=== PATIENT | female | born 1960 | race Caucasian/White ===

== ENCOUNTER 2019-08-20 03:35 | Inpatient (IN) | payer BC ==
[2019-08-20] VITALS (9 sets, daily range): BP systolic 110–144; BP diastolic 49–91
[~2019-08-20] VITALS: Ht 157.5 cm; Wt 75.3 kg
[2019-08-20] MEDS ORDERED: ONDANSETRON HCL 4MG/2ML INJ IV STA (03:47)
[2019-08-20] MEDS ORDERED: LABETALOL 5MG/ML SYR 20 MG/4 ML SYRINGE IV ONE (04:00)
[2019-08-20] MEDS ORDERED: NITROGLYCERIN OINT 1GM/INCH UDPKT TD ONE (04:00)
[2019-08-20] MEDS ORDERED: SEVE800T8 PO (04:05)
[2019-08-20] MEDS ORDERED: CARV6.2548 PO (04:05)
[2019-08-20] MEDS ORDERED: FAMO20TA8 PO (04:05)
[2019-08-20] MEDS ORDERED: ASPI-986 PO (04:05)
[2019-08-20] MEDS ORDERED: MIDO5TAB PO (04:05)
[2019-08-20 04:16] LABS: BASOPHILS % 1.4 % (0.0-2.0); EOSINOPHILS % 6.6 % (0.0-5.0); HEMATOCRIT. 44.6 % (36.0-48.0); HEMOGLOBIN. 14.8 g/dL (12.0-16.0); LYMPHOCYTES % 29.8 % (20.0-50.0); MEAN CORPUSCULAR HEMOGLOBIN 31.5 pg (28.0-32.0); MEAN CORPUSCULAR VOLUME 95.1 fL (81.0-99.0); MEAN PLATELET VOLUME 8.9 fl (7.4-10.4); MONOCYTES % 5.7 % (2.0-8.0); NEUTROPHILS % 56.5 % (40.0-76.0); PLATELET 271 x1000/uL (130-400); RED BLOOD CELL COUNT 4.69 mill/uL (4.2-5.4); RED CELL DISTRIBUTION WIDTH 14.6 % (11.6-14.6)
[2019-08-20 04:59] LABS: CHLORIDE 106 mEq/L (98-107)
[2019-08-20 05:11] LABS: BG BASE EXCESS -8.8 mmol/L (-2.0-2.0); BG BILEVEL POS AIRWAY PRESSURE 18/5; BG DEOXYHEMOGLOBIN 0.5 % (0.0-5.0); BG FRACTION INSPIRED OXYGEN 100; BG HCO3 ACT 17.2 mmol/L (22.0-26.0); BG METHEMOGLOBIN 0.3 % (0.0-1.5); BG OXYGEN SATURATION 99.5 % (92.0-98.5); BG OXYHEMOGLOBIN 98.2 % (94.0-97.0); BG PCO2 37.8 mmHg (35.0-45.0); BG PH 7.277 (7.350-7.450); BG PO2 280.7 mmHg (75.0-100.0); BG SAMPLE SITE RIGHT RADIAL; BG TOTAL HEMOGLOBIN 14.4 g/dL (12.0-18.0); BG VENT MODE MASK - BIPAP
[2019-08-20] MEDS ORDERED: SODIUM POLYSTYRENE SULFONATE 15 G/60 ML BOT PO ONE (05:15)
[2019-08-20] MEDS ORDERED: ALBUTEROL (0.083%) 2.5MG/3ML NEB HHN ONE (05:15)
[2019-08-20] MEDS ORDERED: IPRATROPIUM/ALBUTEROL 0.5-3(2.5)MG/3ML NEB NEB PRN (07:00)
[2019-08-20] MEDS ORDERED: DOCUSATE SODIUM 100MG CAPSULE PO PRN (07:00)
[2019-08-20] MEDS ORDERED: MAGNESIUM/ALUMINUM HYDROXIDE/SIMETHICONE 30ML UDC PO PRN (07:00)
[2019-08-20] MEDS ORDERED: LORAZEPAM 0.5MG TABLET PO PRN (07:00)
[2019-08-20] MEDS ORDERED: CLONIDINE 0.1MG TABLET PO PRN (07:00)
[2019-08-20] MEDS ORDERED: ENOXAPARIN 40MG/0.4ML SYR SUBCUT SCH (07:00)
[2019-08-20] MEDS ORDERED: NITROGLYCERIN 0.4MG TABLET SL SL PRN (07:00)
[2019-08-20] MEDS ORDERED: GUAIFENESIN 200MG/10ML SUGAR FREE UDC PO PRN (07:00)
[2019-08-20] MEDS ORDERED: ONDANSETRON HCL 4MG/2ML INJ IV PRN (07:00)
[2019-08-20] MEDS ORDERED: ACETAMINOPHEN 325MG TABLET PO PRN (07:00)
[2019-08-20] MEDS ORDERED: TRAMADOL 50MG TABLET PO PRN (07:00)
[2019-08-20 08:04] LABS: PHOSPHORUS 8.3 mg/dL (2.5-4.9)
[2019-08-20] MEDS ORDERED: SODIUM POLYSTYRENE SULFONATE 15 G/60 ML BOT PO SCH (09:00)
[2019-08-20] MEDS: CARVEDILOL 3.125 MG TABLET PO SCH ×2 (09:00→20:57)
[2019-08-20] MEDS: BUDESONIDE 0.5MG/2ML NEB HHN SCH (09:21)
[2019-08-20] MEDS: SEVELAMER CARBONATE 800 MG TABLET PO SCH ×3 (09:41→18:03)
[2019-08-20] MEDS: ASPIRIN 325MG EC TABLET PO SCH (09:41)
[2019-08-20] MEDS: FOLIC ACID/VITAMIN B COMP W-C TABLET PO SCH (09:41)
[2019-08-20] MEDS: FAMOTIDINE 20MG TABLET PO SCH (09:41)
[2019-08-20] MEDS: ENOXAPARIN 30MG/0.3ML SYR SUBCUT SCH (09:42)
[2019-08-20] MEDS ORDERED: DEXTROSE 50% WATER 50ML SYRINGE IV PRN ×2 (10:15)
[2019-08-20] MEDS ORDERED: BLOOD SUGAR DIAGNOSTIC STRIP TEST SCH (12:30)
[2019-08-20] MEDS: BLOOD SUGAR DIAGNOSTIC STRIP TEST SCH ×3 (12:39→20:57)
[2019-08-20] MEDS: MIDODRINE HCL 5MG TABLET PO SCH ×2 (12:55→17:00)
[2019-08-20] MEDS: INSULIN LISPRO 100 UNITS/ML SUBCUT SCH ×3 (12:58→21:06)
[2019-08-20] MEDS ORDERED: INSULIN LISPRO 100 UNITS/ML SUBCUT SCH (13:00)
[2019-08-20] MEDS: CALCIUM ACETATE 667MG CAPSULE PO SCH ×2 (13:01→18:03)
[2019-08-20 16:07] LABS: CREATINE KINASE MB FRACTION 2.9 ng/mL (0.5-3.6)
[2019-08-20] MEDS: IPRATROPIUM/ALBUTEROL 0.5-3(2.5)MG/3ML NEB HHN SCH (20:13)
[2019-08-20] MEDS ORDERED: ZOLPIDEM TARTRATE 5MG TABLET PO PRN (21:00)
[2019-08-20 23:57] LABS: CREATINE KINASE MB FRACTION 2.2 ng/mL (0.5-3.6)
[2019-08-21] VITALS (12 sets, daily range): BP systolic 111–143; BP diastolic 54–83
[2019-08-21] MEDS: IPRATROPIUM/ALBUTEROL 0.5-3(2.5)MG/3ML NEB HHN SCH ×4 (00:55→20:13)
[2019-08-21 06:54] LABS: EOSINOPHILS % 5.8 % (0.0-5.0); HEMOGLOBIN. 13.8 g/dL (12.0-16.0); LYMPHOCYTES % 18.6 % (20.0-50.0); MEAN CORPUSCULAR HEMOGLOBIN 31.3 pg (28.0-32.0); MEAN CORPUSCULAR VOLUME 95.5 fL (81.0-99.0); MEAN PLATELET VOLUME 8.6 fl (7.4-10.4); MONOCYTES % 8.9 % (2.0-8.0); NEUTROPHILS % 65.7 % (40.0-76.0); PLATELET 228 x1000/uL (130-400); RED CELL DISTRIBUTION WIDTH 14.5 % (11.6-14.6)
[2019-08-21] MEDS: BLOOD SUGAR DIAGNOSTIC STRIP TEST SCH ×4 (07:30→20:39)
[2019-08-21 08:00] LABS: PHOSPHORUS 6.9 mg/dL (2.5-4.9)
[2019-08-21] MEDS: INSULIN LISPRO 100 UNITS/ML SUBCUT SCH ×4 (08:00→20:50)
[2019-08-21] MEDS: FAMOTIDINE 20MG TABLET PO SCH (09:22)
[2019-08-21] MEDS: ASPIRIN 325MG EC TABLET PO SCH (09:22)
[2019-08-21] MEDS: CALCIUM ACETATE 667MG CAPSULE PO SCH ×2 (09:22→17:48)
[2019-08-21] MEDS: SEVELAMER CARBONATE 800 MG TABLET PO SCH ×3 (09:22→17:47)
[2019-08-21] MEDS: FOLIC ACID/VITAMIN B COMP W-C TABLET PO SCH (09:23)
[2019-08-21] MEDS: CARVEDILOL 3.125 MG TABLET PO SCH ×2 (09:23→20:39)
[2019-08-21] MEDS: ENOXAPARIN 30MG/0.3ML SYR SUBCUT SCH (09:25)
[2019-08-21] MEDS: MIDODRINE HCL 5MG TABLET PO SCH ×3 (10:16→17:47)
[2019-08-21] MEDS: METHYLPREDNISOLONE SOD SUCC 40 MG/ML VIAL IV SCH (13:16)
[2019-08-21] MEDS: LORATADINE 10MG TABLET PO SCH (13:16)
[2019-08-21] MEDS: BUDESONIDE 0.5MG/2ML NEB HHN SCH (20:13)
[2019-08-22] VITALS (11 sets, daily range): BP systolic 115–163; BP diastolic 61–91
[2019-08-22] MEDS: METHYLPREDNISOLONE SOD SUCC 40 MG/ML VIAL IV SCH ×3 (01:19→23:57)
[2019-08-22] MEDS: IPRATROPIUM/ALBUTEROL 0.5-3(2.5)MG/3ML NEB HHN SCH ×4 (01:49→20:33)
[2019-08-22 06:02] LABS: BASOPHILS % 0.6 % (0.0-2.0); EOSINOPHILS % 0.1 % (0.0-5.0); HEMATOCRIT. 42.8 % (36.0-48.0); HEMOGLOBIN. 14.1 g/dL (12.0-16.0); LYMPHOCYTES % 9.6 % (20.0-50.0); MEAN CORPUSCULAR HEMOGLOBIN 31.3 pg (28.0-32.0); MEAN CORPUSCULAR VOLUME 94.8 fL (81.0-99.0); MEAN PLATELET VOLUME 8.7 fl (7.4-10.4); MONOCYTES % 0.4 % (2.0-8.0); NEUTROPHILS % 89.3 % (40.0-76.0); PLATELET 240 x1000/uL (130-400); RED BLOOD CELL COUNT 4.51 mill/uL (4.2-5.4); RED CELL DISTRIBUTION WIDTH 14.4 % (11.6-14.6)
[2019-08-22 06:18] LABS: PHOSPHORUS 7.2 mg/dL (2.5-4.9)
[2019-08-22] MEDS: BLOOD SUGAR DIAGNOSTIC STRIP TEST SCH ×4 (07:30→21:11)
[2019-08-22] MEDS: BUDESONIDE 0.5MG/2ML NEB HHN SCH ×2 (07:45→20:32)
[2019-08-22] MEDS: CALCIUM ACETATE 667MG CAPSULE PO SCH ×3 (08:25→18:15)
[2019-08-22] MEDS: SEVELAMER CARBONATE 800 MG TABLET PO SCH ×3 (08:25→18:15)
[2019-08-22] MEDS: ASPIRIN 325MG EC TABLET PO SCH (08:25)
[2019-08-22] MEDS: FOLIC ACID/VITAMIN B COMP W-C TABLET PO SCH (08:25)
[2019-08-22] MEDS: LORATADINE 10MG TABLET PO SCH (08:25)
[2019-08-22] MEDS: FAMOTIDINE 20MG TABLET PO SCH (08:25)
[2019-08-22] MEDS: MIDODRINE HCL 5MG TABLET PO SCH ×3 (08:26→17:00)
[2019-08-22] MEDS: CARVEDILOL 3.125 MG TABLET PO SCH ×2 (08:26→21:13)
[2019-08-22] MEDS: INSULIN LISPRO 100 UNITS/ML SUBCUT SCH ×4 (08:27→21:13)
[2019-08-22] MEDS: ENOXAPARIN 30MG/0.3ML SYR SUBCUT SCH (08:32)
[2019-08-22 13:53] LABS: BG BASE EXCESS -2.8 mmol/L (-2.0-2.0); BG CARBOXYHEMOGLOBIN 1.1 % (0.5-1.5); BG DEOXYHEMOGLOBIN 7.2 % (0.0-5.0); BG FRACTION INSPIRED OXYGEN 21; BG HCO3 ACT 22.4 mmol/L (22.0-26.0); BG METHEMOGLOBIN 0.1 % (0.0-1.5); BG OXYGEN SATURATION 92.7 % (92.0-98.5); BG OXYHEMOGLOBIN 91.6 % (94.0-97.0); BG PCO2 40.2 mmHg (35.0-45.0); BG PH 7.363 (7.350-7.450); BG PO2 65.7 mmHg (75.0-100.0); BG SAMPLE SITE RIGHT RADIAL; BG TOTAL HEMOGLOBIN 14.8 g/dL (12.0-18.0); BG VENT MODE ROOM AIR
[2019-08-22] MEDS ORDERED: HEPARIN SODIUM 1,000 UNIT/1ML VIAL IV NR (17:15)
[2019-08-23] VITALS (8 sets, daily range): BP systolic 135–149; BP diastolic 62–94
[2019-08-23] MEDS: IPRATROPIUM/ALBUTEROL 0.5-3(2.5)MG/3ML NEB HHN SCH ×3 (04:44→15:38)
[2019-08-23 06:36] LABS: HEMATOCRIT. 43.4 % (36.0-48.0); HEMOGLOBIN. 14.3 g/dL (12.0-16.0); MEAN CORPUSCULAR HEMOGLOBIN 31.3 pg (28.0-32.0); MEAN CORPUSCULAR VOLUME 95.2 fL (81.0-99.0); MEAN PLATELET VOLUME 8.7 fl (7.4-10.4); PLATELET 246 x1000/uL (130-400); RED BLOOD CELL COUNT 4.56 mill/uL (4.2-5.4); RED CELL DISTRIBUTION WIDTH 14.6 % (11.6-14.6)
[2019-08-23] MEDS: BLOOD SUGAR DIAGNOSTIC STRIP TEST SCH ×3 (07:55→17:19)
[2019-08-23] MEDS: SEVELAMER CARBONATE 800 MG TABLET PO SCH ×2 (08:06→12:38)
[2019-08-23] MEDS: CARVEDILOL 3.125 MG TABLET PO SCH (08:06)
[2019-08-23] MEDS: LORATADINE 10MG TABLET PO SCH (08:06)
[2019-08-23] MEDS: ASPIRIN 325MG EC TABLET PO SCH (08:06)
[2019-08-23] MEDS: FAMOTIDINE 20MG TABLET PO SCH (08:07)
[2019-08-23] MEDS: CALCIUM ACETATE 667MG CAPSULE PO SCH ×2 (08:07→12:38)
[2019-08-23] MEDS: ENOXAPARIN 30MG/0.3ML SYR SUBCUT SCH (08:07)
[2019-08-23] MEDS: FOLIC ACID/VITAMIN B COMP W-C TABLET PO SCH (08:07)
[2019-08-23] MEDS: MIDODRINE HCL 5MG TABLET PO SCH ×3 (08:08→17:00)
[2019-08-23] MEDS: INSULIN LISPRO 100 UNITS/ML SUBCUT SCH ×2 (08:08→12:39)
[2019-08-23] MEDS: BUDESONIDE 0.5MG/2ML NEB HHN SCH (08:31)
[2019-08-23 10:42] LABS: PLATELET ESTIMATE NORMAL
[2019-08-23] MEDS: METHYLPREDNISOLONE SOD SUCC 40 MG/ML VIAL IV SCH (12:38)
[2019-08-23] MEDS ORDERED: ALBU90AE INH (13:23)
[2019-08-23] MEDS ORDERED: IPRA3AMP9 HHN (17:08)
== END 2019-08-23 19:00 | disposition home or self-care (01) | DRG 871 ==
LOC: ER 03:35 → 5EST 05:40 → EDBEDREQTM 05:50 → EDBEDREQSVC 05:50 → EDBEDREQ 05:50 → SUPCPDRO 06:57 → ENRESERV 07:40
PROVIDERS: ADMIT Internal Medicine; ATTEND Internal Medicine
PROC: 5A09357 Assistance with Respiratory Ventilation, Less than 24 Consecutive Hours, Continuous Positive Airway Pressure (ICD-10-PCS; principal; 2019-08-20)
DX: A41.9 Sepsis, unspecified organism (principal); I50.43 Acute on chronic combined systolic (congestive) and diastolic (congestive) heart failure; J96.01 Acute respiratory failure with hypoxia; N18.6 End stage renal disease; E43 Unspecified severe protein-calorie malnutrition; J18.9 Pneumonia, unspecified organism; I42.9 Cardiomyopathy, unspecified; D62 Acute posthemorrhagic anemia; I13.2 Hypertensive heart and chronic kidney disease with heart failure and with stage 5 chronic kidney disease, or end stage renal disease; K92.2 Gastrointestinal hemorrhage, unspecified; N17.9 Acute kidney failure, unspecified; N25.81 Secondary hyperparathyroidism of renal origin; E87.5 Hyperkalemia; I95.1 Orthostatic hypotension; D72.1 Eosinophilia; E11.22 Type 2 diabetes mellitus with diabetic chronic kidney disease; E66.9 Obesity, unspecified; E83.39 Other disorders of phosphorus metabolism; F14.10 Cocaine abuse, uncomplicated; R74.0 Nonspecific elevation of levels of transaminase and lactic acid dehydrogenase [LDH]; I25.10 Atherosclerotic heart disease of native coronary artery without angina pectoris; Z79.899 Other long term (current) drug therapy; Z82.49 Family history of ischemic heart disease and other diseases of the circulatory system; Z87.891 Personal history of nicotine dependence; Z95.1 Presence of aortocoronary bypass graft; Z95.810 Presence of automatic (implantable) cardiac defibrillator; Z99.2 Dependence on renal dialysis; Z88.8 Allergy status to other drugs, medicaments and biological substances; Z79.82 Long term (current) use of aspirin
CPT/HCPCS: 36415; 36600; 71045; 80048; 80061; 82375; 82550; 82553; 82805; 82962; 83036; 83735; 84100; 84484; 93005; 93306; 93970; 94618; 94640; 94660; 96374; 96375; 97116; 97162; 99291; J1644; J1650; J1815; J2405; J2920; J3490; J7611; J7620; J7626

== ENCOUNTER 2024-10-04 00:24 | Inpatient (IN) | payer BC ==
[~2024-10-04] VITALS: Ht 162.6 cm; Wt 76.2 kg
[2024-10-04] VITALS (16 sets, daily range): BP systolic 146–166; BP diastolic 77–89; PULSE 71–85; RESP 14–28; TEMP 36.50292–36.974; O2SAT 96–100
[~2024-10-04 00:24] MED LIST: ALBU90AE INH; ASPI-986 PO; CARV6.2548 PO; FAMO20TA8 PO; IPRA3AMP9 HHN; MIDO5TAB4 PO; SEVE800T8 PO
[2024-10-04] MEDS: ALBUTEROL (0.083%) 2.5MG/3ML NEB HHN STA (00:48)
[2024-10-04 00:52] LABS: EOSINOPHILS % 4.9 % (0.0-5.0); HEMATOCRIT. 47.4 % (36.0-48.0); HEMOGLOBIN. 15.2 g/dL (12.0-16.0); LYMPHOCYTES % 32.3 % (20.0-50.0); MEAN CORPUSCULAR HEMOGLOBIN 29.3 pg (28.0-32.0); MEAN CORPUSCULAR HGB CONC 32.1 g/dL (31.0-37.0); MEAN CORPUSCULAR VOLUME 91.2 fL (81.0-99.0); MEAN PLATELET VOLUME 9.2 fl (7.4-10.4); MONOCYTES % 6.9 % (2.0-8.0); NEUTROPHILS % 54.9 % (40.0-76.0); PLATELET 254 x1000/uL (130-400); RED CELL DISTRIBUTION WIDTH 15.9 % (11.6-14.6); WHITE BLOOD COUNT 15.7 x1000/uL (4.5-11.0)
[2024-10-04 00:59] LABS: TROPONIN I HIGH SENSITIVITY 16 ng/L (3.0-34)
[2024-10-04 01:09] LABS: BG BASE EXCESS -9.3 mmol/L (-2.0-3.0); BG CARBOXYHEMOGLOBIN 0.8 % (0.5-1.5); BG DEOXYHEMOGLOBIN 0.3 % (0.0-5.0); BG FRACTION INSPIRED OXYGEN 100; BG HCO3 ACT 16.7 mmol/L (21.0-28.0); BG METHEMOGLOBIN 0.3 % (0.5-1.5); BG OXYGEN SATURATION 99.7 % (94.0-98.0); BG OXYHEMOGLOBIN 98.6 % (94.0-98.0); BG PCO2 36.5 mmHg (32.0-45.0); BG PH 7.277 (7.350-7.450); BG PO2 359.8 mmHg (83.0-108.0); BG SAMPLE SITE LEFT RADIAL; BG TOTAL HEMOGLOBIN 15.1 g/dL (12.0-16.0); BG VENT MODE MASK - BIPAP
[2024-10-04] MEDS: ASPIRIN 81MG TABLET PO ONE (01:30)
[2024-10-04 01:45] LABS: CHLORIDE 101 mEq/L (98-107); POTASSIUM 4.9 mEq/L (3.5-5.1); SODIUM 138 mEq/L (136-145)
[2024-10-04 01:46] LABS: CALCIUM 9.9 mg/dL (8.7-10.4); CARBON DIOXIDE 17 mEq/L (21-32)
[2024-10-04 01:51] LABS: GLUCOSE 255 mg/dL (70-105); UREA NITROGEN BLOOD 49 mg/dL (9-23)
[2024-10-04 02:02] LABS: CREATININE 9.7 mg/dL (0.6-1.0)
[2024-10-04 04:46] LABS: INR 0.9; PARTIAL THROMBOPLASTIN TIME 26.7 sec (23.4-31.0); PROTHROMBIN TIME 10.5 sec (9.6-11.0)
[2024-10-04] MEDS ORDERED: DOCUSATE SODIUM 100MG CAPSULE PO PRN (10:30)
[2024-10-04] MEDS ORDERED: ACETAMINOPHEN 325MG TABLET PO PRN ×2 (10:30)
[2024-10-04] MEDS ORDERED: IPRATROPIUM/ALBUTEROL 0.5-3(2.5)MG/3ML NEB HHN PRN (10:30)
[2024-10-04] MEDS ORDERED: DEXTROSE 50% WATER 50ML SYRINGE IV PRN (10:30)
[2024-10-04] MEDS ORDERED: CLONIDINE 0.1MG TABLET PO PRN (10:30)
[2024-10-04] MEDS ORDERED: ONDANSETRON HCL 4MG/2ML INJ IV PRN (10:30)
[2024-10-04] MEDS: FAMOTIDINE 20MG TABLET PO SCH (11:00)
[2024-10-04 11:47] LABS: HEPATITIS B SURFACE ANTIGEN NEGATIVE (Negative)
[2024-10-04 12:09] LABS: HEPATITIS A AB IGM NEGATIVE (Negative); HEPATITIS B CORE AB IGM NEGATIVE (Negative); HEPATITIS C AB NON REACTIVE (Neg) (Negative)
[2024-10-04] MEDS: SEVELAMER CARBONATE 800 MG TABLET PO SCH (13:00)
[2024-10-04] MEDS: BLOOD SUGAR DIAGNOSTIC STRIP TEST SCH (13:36)
[2024-10-04] MEDS: INSULIN LISPRO 100 UNITS/ML SUBCUT SCH (14:17)
[2024-10-04] MEDS: CARVEDILOL 3.125 MG TABLET PO NR (14:44)
[2024-10-04] MEDS: ATORVASTATIN CALCIUM 10MG TABLET PO SCH (21:38)
[2024-10-04] MEDS: SACUBITRIL/VALSARTAN 24MG/26MG TABLET PO SCH (22:35)
[2024-10-05] VITALS (12 sets, daily range): BP systolic 140–159; BP diastolic 70–109; PULSE 74–85; RESP 15–31; TEMP 36.33624–37.33632; O2SAT 89–96
[2024-10-05 06:09] LABS: BASOPHILS % 1.6 % (0.0-2.0); EOSINOPHILS % 5.1 % (0.0-5.0); HEMATOCRIT. 42.4 % (36.0-48.0); HEMOGLOBIN. 13.8 g/dL (12.0-16.0); LYMPHOCYTES % 17.6 % (20.0-50.0); MEAN CORPUSCULAR HEMOGLOBIN 29.5 pg (28.0-32.0); MEAN CORPUSCULAR HGB CONC 32.7 g/dL (31.0-37.0); MEAN CORPUSCULAR VOLUME 90.3 fL (81.0-99.0); MEAN PLATELET VOLUME 9.2 fl (7.4-10.4); MONOCYTES % 10.4 % (2.0-8.0); NEUTROPHILS % 65.3 % (40.0-76.0); PLATELET 186 x1000/uL (130-400); RED BLOOD CELL COUNT 4.69 mill/uL (4.2-5.4); RED CELL DISTRIBUTION WIDTH 15.3 % (11.6-14.6); WHITE BLOOD COUNT 7.4 x1000/uL (4.5-11.0)
[2024-10-05 06:13] LABS: CHLORIDE 101 mEq/L (98-107); POTASSIUM 5.2 mEq/L (3.5-5.1); SODIUM 137 mEq/L (136-145)
[2024-10-05 06:14] LABS: CALCIUM 10.1 mg/dL (8.7-10.4); CARBON DIOXIDE 22 mEq/L (21-32)
[2024-10-05 06:19] LABS: GLUCOSE 136 mg/dL (70-105); UREA NITROGEN BLOOD 52 mg/dL (9-23)
[2024-10-05 06:20] LABS: ALANINE AMINOTRANSFERASE 9 IU/L (10-49); ALBUMIN 4.1 g/dL (3.2-4.8); ASPARTATE AMINOTRANSFERASE 16 IU/L (<34)
[2024-10-05 06:21] LABS: BILIRUBIN TOTAL 0.3 mg/dL (0.1-1.0); PROTEIN TOTAL 7.3 g/dL (6.0-8.3)
[2024-10-05 06:39] LABS: CREATININE 10.4 mg/dL (0.6-1.0)
[2024-10-05] MEDS: MIDODRINE HCL 5MG TABLET PO SCH ×2 (09:00→21:18)
[2024-10-05] MEDS ORDERED: ASPIRIN 325MG EC TABLET PO SCH (09:00)
[2024-10-05] MEDS: FOLIC ACID/VITAMIN B COMP W-C TABLET PO SCH (10:47)
[2024-10-05] MEDS: ASPIRIN 81MG EC TABLET PO SCH (10:50)
[2024-10-05] MEDS: SODIUM ZIRCONIUM CYCLOSILICATE 10GM/PACKET PO NR (11:01)
[2024-10-06] VITALS (7 sets, daily range): BP systolic 100–156; BP diastolic 49–91; PULSE 72–85; RESP 16–29; TEMP 36.114–37.00296; O2SAT 89–96
[2024-10-06 10:17] LABS: CALCIUM 10.1 mg/dL (8.7-10.4)
[2024-10-06 10:23] LABS: BASOPHILS % 1.3 % (0.0-2.0); EOSINOPHILS % 6.5 % (0.0-5.0); HEMATOCRIT. 45.6 % (36.0-48.0); HEMOGLOBIN. 14.8 g/dL (12.0-16.0); LYMPHOCYTES % 17.7 % (20.0-50.0); MEAN CORPUSCULAR HEMOGLOBIN 29.2 pg (28.0-32.0); MEAN CORPUSCULAR HGB CONC 32.5 g/dL (31.0-37.0); MEAN CORPUSCULAR VOLUME 89.7 fL (81.0-99.0); MEAN PLATELET VOLUME 9.1 fl (7.4-10.4); MONOCYTES % 8.1 % (2.0-8.0); NEUTROPHILS % 66.4 % (40.0-76.0); PLATELET 212 x1000/uL (130-400); RED BLOOD CELL COUNT 5.08 mill/uL (4.2-5.4); RED CELL DISTRIBUTION WIDTH 15.1 % (11.6-14.6); WHITE BLOOD COUNT 7.5 x1000/uL (4.5-11.0)
[2024-10-06 10:24] LABS: CREATININE 12.2 mg/dL (0.6-1.0)
[2024-10-06] MEDS ORDERED: SACUBITRIL/VALSARTAN 24MG/26MG TABLET PO SCH (10:30)
== END 2024-10-06 13:05 | disposition home or self-care (01) | DRG 291 ==
LOC: ER 00:24 → 5EST 03:25 → EDBEDREQTM 03:51 → EDBEDREQ 03:51
PROVIDERS: ADMIT Internal Medicine; ATTEND Internal Medicine
PROC: 5A1D70Z Performance of Urinary Filtration, Intermittent, Less than 6 Hours Per Day (ICD-10-PCS; principal; 2024-10-04)
PROC: 5A09357 Assistance with Respiratory Ventilation, Less than 24 Consecutive Hours, Continuous Positive Airway Pressure (ICD-10-PCS; 2024-10-04)
DX: I13.2 Hypertensive heart and chronic kidney disease with heart failure and with stage 5 chronic kidney disease, or end stage renal disease (principal); I50.23 Acute on chronic systolic (congestive) heart failure; J96.01 Acute respiratory failure with hypoxia; N18.6 End stage renal disease; E87.20 Acidosis, unspecified; E11.22 Type 2 diabetes mellitus with diabetic chronic kidney disease; E11.65 Type 2 diabetes mellitus with hyperglycemia; D72.829 Elevated white blood cell count, unspecified; J44.9 Chronic obstructive pulmonary disease, unspecified; D64.9 Anemia, unspecified; I42.9 Cardiomyopathy, unspecified; I25.10 Atherosclerotic heart disease of native coronary artery without angina pectoris; E78.5 Hyperlipidemia, unspecified; I34.81 Nonrheumatic mitral (valve) annulus calcification; Z99.2 Dependence on renal dialysis; Z79.84 Long term (current) use of oral hypoglycemic drugs; Z95.1 Presence of aortocoronary bypass graft; Z86.73 Personal history of transient ischemic attack (TIA), and cerebral infarction without residual deficits; Z79.899 Other long term (current) drug therapy; Z95.810 Presence of automatic (implantable) cardiac defibrillator; Z87.891 Personal history of nicotine dependence; I25.2 Old myocardial infarction
CPT/HCPCS: 36415; 36600; 71045; 80048; 80053; 82375; 82805; 82962; 83036; 83880; 84484; 85025; 86705; 86709; 87340; 90935; 93005; 93306; 94640; 94660; 99291; A4606; J1815